=== PATIENT | female | born 1945 | race Caucasian/White ===

== ENCOUNTER 2019-08-29 21:50 | Inpatient (IN) | payer MEDICARE, BC ==
[2019-08-29] MEDS ORDERED: Pantoprazole 80 MG in Sodium Chloride 0.9% 100 ML IVP SCH (22:15)
[2019-08-29] MEDS ORDERED: Pantoprazole 40 MG VIAL ONE (22:24)
[2019-08-29] MEDS ORDERED: Benzocaine 20% Spray 60 ML CAN ONE (22:25)
[2019-08-29] MEDS ORDERED: Oxymetazoline HCl 0.05% (30 ML BOT) ONE (22:25)
[2019-08-29] MEDS ORDERED: Lidocaine Viscous Sol 2% 15 ml UD Cup ONE (22:27)
[2019-08-29 22:33] LABS: Bacteria/HPF None Seen HPF (None Seen); Bilirubin Negative (Negative); Blood, Urine Trace (Negative); Clarity Clear (Clear); Glucose, Urine (Dipstick) Normal (Negative); Leukocyte Negative Leu/uL (Negative); Nitrite Negative (Negative); Protein, Urine (Dipstick) Negative (Neg-Trace); RBC/HPF 0-3 HPF (0-3); Squamous Epithelial None Seen HPF (0-3); Urobilinogen Normal mg/dL (Less than 2); WBC/HPF 0-3 HPF (0-3)
--- NOTE | 2019-08-29 22:35 | RAD ---
EXAM: Chest one view: HISTORY: Nausea and vomiting COMPARISON: 06/30/2012 FINDINGS: Probable small hiatal hernia. Heart size: Within normal limits. Lungs: Clear of acute process. No evidence for pneumonia, pleural effusion, acute edema, or pneumothorax, or other significant acute process. IMPRESSION: No significant acute intrathoracic disease.
[2019-08-29 22:55] LABS: #Basophils 0.1 thou/uL (0.0-0.2); #Eosinphils 0.1 thou/uL (0.0-0.7); #Lymphocytes 1.6 thou/uL (1.20-3.40); #Monocytes 0.7 thou/uL (0.11-0.59); #Neutrophils 12.4 thou/uL (1.40-6.50); %Basophils 0.8 % (0.0-1.0); %Eosinophils 0.8 % (0.0-10.0); %Lymphocytes 10.5 % (21.0-51.0); %Monocytes 4.5 % (0.0-10.0); %Neutrophils 83.4 % (42.0-75.0); Hemoglobin 11.9 g/dL (12.0-16.0); Mean Corpuscular Hemoglobin 29.9 pg (27.0-31.0); Mean Corpuscular Volume 93.6 fL (78.0-98.0); Mean Platelet Volume 8.3 fL (7.4-10.4); Platelet Count 211 thou/uL (130-400); Red Blood Cell (RBC) Count 3.98 mill/uL (4.20-5.40); White Blood Cell (WBC) Count 14.9 thou/uL (4.8-10.8)
[2019-08-29 23:04] LABS: INR-International Normal Ratio 1.1; PTT 25.4 SEC (22.9-36.1); Prothrombin Time 14.3 SEC (12.0-14.7)
[2019-08-29 23:16] LABS: ALT (SGPT) 11 U/L (8-55); AST (SGOT) 19 U/L (5-34); Albumin 3.7 g/dL (3.4-4.8); Alkaline Phosphatase 59 U/L (40-110); Anion Gap 16 mmol/L (10-20); BUN (Urea Nitrogen) 29 mg/dL (9.8-20.1); Bilirubin, Total 0.4 mg/dL (0.2-1.2); CK (CPK) 73 U/L (29-168); Calc. Creatinine Clearance 0 mL/min (70-130); Calcium 7.9 mg/dL (7.8-10.44); Carbon Dioxide 16 mmol/L (23-31); Chloride 110 mmol/L (98-107); Estimated GFR-MDRD 67; Globulin 2.8 g/dL (2.4-3.5); Glucose 120 mg/dL (83-110); Lipase 17 U/L (8-78); Protein, Total 6.5 g/dL (6.0-8.3); Sodium 137 mmol/L (136-145)
--- NOTE | 2019-08-29 23:43 | RAD ---
EXAM: Chest one view: HISTORY: Nauseous and vomiting COMPARISON: 08/29/2019 FINDINGS: NG tube is in place extending in the stomach. Heart size: Within normal limits. Lungs: Clear of acute process. No evidence for pneumonia, pleural effusion, acute edema, or pneumothorax, or other significant acute process. IMPRESSION: No significant acute intrathoracic disease.
[2019-08-30] MEDS ORDERED: Ondansetron PF 4 MG/2 ML Vial IVP PRN (00:44)
[2019-08-30] MEDS ORDERED: Ondansetron ODT 4 MG TAB SL PRN (00:44)
[2019-08-30] MEDS ORDERED: D5 1/2 NS w/20 mEq KCL 1,000 ML IV SCH (00:45)
[2019-08-30 01:55] VITALS: BMI 27.3
--- NOTE | 2019-08-30 02:19 | PDOC.EVN ---
Event Note - Event Note Event Note: [id number] HP
[2019-08-30] MEDS: Sodium Chloride 0.9% 1,000 ML IV SCH ×2 (02:31→15:00)
[2019-08-30 05:09] LABS: #Monocytes 0.2 thou/uL (0.11-0.59); #Neutrophils 6.5 thou/uL (1.40-6.50); %Basophils 0.6 % (0.0-1.0); %Eosinophils 0.2 % (0.0-10.0); %Lymphocytes 12.4 % (21.0-51.0); %Monocytes 2.9 % (0.0-10.0); %Neutrophils 83.9 % (42.0-75.0); Hemoglobin 10.2 g/dL (12.0-16.0); Mean Corpuscular HGB CONC 34.3 g/dL (32.0-36.0); Mean Corpuscular Hemoglobin 31.5 pg (27.0-31.0); Mean Corpuscular Volume 91.8 fL (78.0-98.0); Mean Platelet Volume 7.7 fL (7.4-10.4); Platelet Count 187 thou/uL (130-400); RBC Distribution Width 11.7 % (11.5-14.5); Red Blood Cell (RBC) Count 3.24 mill/uL (4.20-5.40); White Blood Cell (WBC) Count 7.8 thou/uL (4.8-10.8)
[2019-08-30] MEDS ORDERED: FLU VACC TS2019-20(65YR UP)/PF 180 MCG/0.5 ML SYRINGE IM ONE (09:00)
[2019-08-30] MEDS ORDERED: Promethazine HCl 25 MG/ML VIAL SLOW IVP PRN (12:57)
[2019-08-30] MEDS ORDERED: Promethazine HCl 25 MG/ML VIAL IM PRN (12:57)
[2019-08-30] MEDS ORDERED: Ondansetron HCl/PF 4 MG/2 ML Vial IVP PRN (12:57)
--- NOTE | 2019-08-30 13:00 | CON ---
DATE OF CONSULTATION: 08/30/2019 REASON FOR CONSULT: Hematemesis, coffee-ground material. HISTORY OF PRESENT ILLNESS: Ms. Bailey is here with intermittent problems with burning stomach or hunger feeling in her stomach, but yesterday she had episode of vomiting couple times with coffee-grounds emesis the very first time it happened and second time. Then, she turned around and had a bowel movement where she had melena. She has never had this before. She has been taking the full dose aspirin daily. She denies any NSAID use regularly, although occasionally she uses some Aleve [id number]. She came to the emergency room and had a slight drop in hemoglobin from baseline. She was started on a Protonix drip and admitted. She had an NG tube for a while. It has been discontinued. She has had no further hematemesis or melena here. She has had no bleeding in the past or history of ulcers. PAST MEDICAL HISTORY: Some rhinitis and allergies. PAST SURGICAL HISTORY: None. SOCIAL HISTORY: She does not drink, smoke, or use drugs. FAMILY HISTORY: Negative for colorectal cancer, liver disease, or colon cancer. ALLERGIES: NONE. MEDICATIONS: At home, aspirin 325 mg. Medications here, Protonix drip. REVIEW OF SYSTEMS: Negative for dysphagia, odynophagia, weight loss, hematochezia, abdominal pain, or change in appetite. She has not had a previous screening colonoscopy. She is negative for shortness of breath, chest pain, dyspnea on exertion in the past. PHYSICAL EXAMINATION: VITAL SIGNS: Temperature is 98.3, pulse 72, blood pressure 122/68. LUNGS: Clear. HEART: Regular rate and rhythm without clicks or murmurs. ABDOMEN: Soft and nontender. There is no rebound. There is no guarding. EXTREMITIES: No clubbing, cyanosis, or edema. LABORATORY DATA: BUN is 29, creatinine is 0.84, it is last night at 2200 hours. Her baseline several years ago was 16 and 0.8. White count was 14.9 last night with a hemoglobin 11.9, this morning hemoglobin 10.2, MCV 27. Baseline hemoglobin back in 2014 was 14. ASSESSMENT: Hematemesis, melena, likely related to upper gastrointestinal bleed. Most likely this would be an ulcer related to daily aspirin use. She does use some other NSAIDs but sparingly. RECOMMENDATIONS: Continue PPI. The patient is n.p.o. We will proceed with EGD today. Job ID: [id number]
--- NOTE | 2019-08-30 14:09 | OP ---
DATE OF PROCEDURE: 08/30/2019 PREPROCEDURE DIAGNOSES: Hematemesis, drop in hemoglobin, suspected upper GI bleed. POSTPROCEDURE DIAGNOSES: 1. Gastric ulcer in the antrum, 1 cm in diameter, anterior wall with a red spot, but no visible vessel or clot to indicate high risk for rebleeding. 2. Otherwise, normal EGD. PROCEDURES: EGD with biopsy of gastric antral ulcer and biopsy of gastric antral mucosa for H pylori. RECOMMENDATIONS: 1. Protonix IV q.12 hours. 2. Full liquid diet, advance as tolerated. No bleeding. Can change to p.o. PPI and discharge home tomorrow. 3. NSAID avoidance. 4. Follow up in my office in 2 to 3 weeks to schedule outpatient followup endoscopy in 6 weeks to document healing of ulcer. ANESTHESIA: TIVA. DESCRIPTION OF PROCEDURE: After the patient was informed of the risks, benefits, and possible complications of endoscopy including the perforation, reaction to medication, aspiration, informed consent was obtained. The patient was brought to endoscopy suite, where she was sedated in gradual fashion. Once she was comfortable, a bite block was placed inside the orifice. The endoscope was advanced through the esophagus, stomach, and second and third portions of the duodenum and slowly removed. The esophagus was normal except for small Schatzki ring at the distal esophagus. There was no inflammatory changes. There was no evidence of Elvira-Bell tear. The scope was advanced into the stomach, which was without signs of old blood. In the antrum, there was some submucosal hemorrhage over a prominent fold, anterior wall of the antrum, and getting down to this area, there was about a 1 cm white based ulcer with one red spot in the base. There was no visible vessel, active bleeding, or stigmata of high risk for rebleeding. Biopsy was taken from the margin of the ulcer and submitted to Pathology. Biopsy was taken from the gastric antrum and submitted to Pathology, rule out H. pylori. The duodenal bulb was entered and found to be normal including the second and third portions of the duodenum. The scope was brought back into the stomach. There was no bleeding identified, and then, the scope was retroflexed with normal distention in the stomach and no evidence of lesions in the proximal stomach or cardia. The scope was returned to forward position and then removed. The patient tolerated the procedure well. There were no complications. Job ID: [id number]
--- NOTE | 2019-08-30 17:54 | PDOC.HOSPP ---
- Subjective Encounter Date: 08/30/19 Encounter Time: 16:00 Subjective: The patient is doing better. She reports that she was vomiting black blood and that she saw black in her stool today. She had no abdominal pain or diarrhea, no fevers or chills. She has been taking aspirin and NSAIDs for arthritis in her legs. She denies any heart problems. She does take symbicort occasionally for cough, was told she may have COPD. - Objective Vital Signs & Weight: Vital Signs (12 hours) Temp Pulse Resp BP Pulse Ox 08/30/19 15:59 72 16 138/70 95 08/30/19 13:15 97.1 F L 79 19 156/81 H 99 08/30/19 07:49 98.3 F 72 16 122/68 100 Weight Weight 159 lb I&O: 08/29/19 08/30/19 08/31/19 06:59 06:59 06:59 Intake Total 520 Balance 520 Result Diagrams: 08/30/19 14:38 08/29/19 22:46 Hospitalist ROS - Review of Systems Constitutional: denies: sweats ENT: denies: nose pain Gastrointestinal: denies: abdominal pain Musculoskeletal: denies: shoulder pain - Medication Medications: Active Medications Generic Name Dose Route Start Last Admin Trade Name Freq PRN Reason Stop Dose Admin Sodium Chloride 1,000 mls @ 100 mls/hr 08/30/19 02:00 08/30/19 15:00 Normal Saline 0.9% IV 1,000 mls .Q10H MARIO Administration - Exam Eye: PERRL, anicteric sclera ENT: normocephalic atraumatic, no oropharyngeal lesions Neck: no JVD Heart: RRR, no murmur, no gallops Respiratory: CTAB, no wheezes, no rales Gastrointestinal: soft, non-tender, non-distended Extremities: no cyanosis, no clubbing, no edema Skin: normal turgor, no lesions Neurological: cranial nerve grossly intact, normal sensation to touch, no new deficit Musculoskeletal: normal tone, normal strength Psychiatric: normal behavior, A&O x 3, oriented to person Hosp A/P - Plan Chest x ray : no acute disease Chest X ray: no acute disease THis is a 73 year old female who presented with coffee ground emesis and black tarry stool. Had history of NSAID and aspirin use for arthritis, s/p EGD showing ulcer and Schatzki's ring. Upper GI bleed - secondary to gastric ulcer - s/p upper endoscopy showing ulcer 1cm in the antral area. Biopsies taken, H pylori pending - continue IV protonix q12 hour - patient tolerated solid diet this evening prior to my arrival - d/c tomorrow on home protonix, f/u with Dr. Cormier in 2-3 weeks for post endoscopy in 6 weeks Schatzi's ring - continue protonix COPD - budesonide prn Disposition: d/c tomorrow am Code status: full code DVT prophylaxis: contraindicated GI Prophylaxis: PPI
[2019-08-30] MEDS: Pantoprazole 40 MG VIAL IVP SCH (20:10)
[2019-08-30 22:18] LABS: Hemoglobin 9.4 g/dL (12.0-16.0)
[2019-08-31] MEDS: Sodium Chloride 0.9% 1,000 ML IV SCH ×2 (00:35→09:39)
[2019-08-31 06:22] LABS: Hemoglobin 9.3 g/dL (12.0-16.0); Mean Corpuscular Hemoglobin 31.1 pg (27.0-31.0); Mean Corpuscular Volume 91.6 fL (78.0-98.0); Mean Platelet Volume 7.3 fL (7.4-10.4); Platelet Count 169 thou/uL (130-400); RBC Distribution Width 11.7 % (11.5-14.5); Red Blood Cell (RBC) Count 2.99 mill/uL (4.20-5.40); White Blood Cell (WBC) Count 6.2 thou/uL (4.8-10.8)
[2019-08-31 06:52] LABS: Anion Gap 9 mmol/L (10-20); BUN (Urea Nitrogen) 12 mg/dL (9.8-20.1); Calc. Creatinine Clearance 83 mL/min (70-130); Calcium 7.7 mg/dL (7.8-10.44); Carbon Dioxide 23 mmol/L (23-31); Chloride 113 mmol/L (98-107); Estimated GFR-MDRD 81; Glucose 88 mg/dL (83-110); Potassium 3.5 mmol/L (3.5-5.1); Sodium 141 mmol/L (136-145)
[2019-08-31] MEDS ORDERED: Pantoprazole 40 MG GRANULES PACKET PO SCH (09:00)
[2019-08-31] MEDS: Pantoprazole 40 MG VIAL IVP SCH (09:40)
--- NOTE | 2019-08-31 14:18 | PRG ---
DATE OF SERVICE: 08/31/2019 SUBJECTIVE: Ms. Bailey is doing well. She has had no bleeding. She is set to go home today. She denies any melena, hematemesis, or nausea. She does have some right neck pain. She has been afebrile. OBJECTIVE: VITAL SIGNS: Temperature max 98.7, pulse 79, blood pressure 125/71. LUNGS: Clear. ABDOMEN: Soft, nontender. LABORATORY DATA: Hemoglobin is stable at 9.3, platelet count is 169, white count is 6.2. ASSESSMENT: 1. Gastrointestinal bleed secondary to gastric ulcer, low risk for rebleeding. Biopsies obtained and pending. 2. Mild sore throat. She has a little bit tenderness in the right neck with no fluctuance or crepitus. This is probably related to her endoscopy. RECOMMENDATIONS: PPI b.i.d. for 2 weeks, then once daily and Protonix, which she is on is fine. I have told her if that is too expensive for her, she can get [id number] Prilosec or Nexium and take 4 of those because they are 20 mg for 14 days and then 2 a day for full 8 weeks. I have recommended she have a repeat endoscopy in 6 to 8 weeks to confirm healing. Job ID: [id number]
[2019-08-31 15:27] VITALS: BP 132/73; TEMP 98.5
--- NOTE | 2019-09-01 07:55 | HP ---
CHIEF COMPLAINT: Vomiting blood. HISTORY OF PRESENT ILLNESS: Ms. Bailey is a 73-year-old female with past medical history of COPD and arthritis, who takes 325 mg of aspirin daily and occasionally takes ibuprofen, presented to the emergency room with vomiting blood that started earlier today. The patient has some abdominal discomfort, but denies fevers, chills, or chest pain. Also, she notes that the stool is black. On workup in the emergency room, the patient was found to have a hemoglobin of 11.9. INR is 1.1. The patient is started on IV proton pump inhibitor, and GI has been consulted. PAST MEDICAL HISTORY: 1. Arthritis. 2. COPD. PAST SURGICAL HISTORY: No reported past surgical history. SOCIAL HISTORY: Denies alcohol use. No smoking history. FAMILY HISTORY: Reviewed and noncontributory. HOME MEDICATIONS: Please see home medication reconciliation form for updated medications. ALLERGIES: ALLERGIC TO PREDNISONE. REVIEW OF SYSTEMS: Review of 14 systems negative except what is mentioned in the history of present illness. PHYSICAL EXAMINATION: GENERAL: The patient is awake, alert, not in acute distress. VITAL SIGNS: Blood pressure 136/61, pulse is 72, respiratory rate 16, and temperature is 97.6. HEAD AND NECK: Normocephalic, atraumatic. Neck is supple. No JVD. CHEST: Fair bilateral air entry. HEART: S1, S2. Regular. ABDOMEN: Soft with mild epigastric tenderness. Bowel sounds present. NEUROLOGIC: Awake, alert, oriented x3. PSYCH: Normal mood. EXTREMITIES: No clubbing or cyanosis. LABORATORY DATA: As mentioned above in the history of present illness. ASSESSMENT: 1. Acute gastrointestinal bleeding, upper. 2. Abdominal pain. 3. Osteoarthritis, on aspirin/NSAIDs. 4. Chronic obstructive pulmonary disease. PLAN: 1. Admit. 2. We will keep the patient n.p.o. 3. IV fluids. 4. Monitor hemoglobin and hematocrit. 5. Continue with IV proton pump inhibitor. 6. GI is being consulted for evaluation and further management. 7. aspirin and NSAIDs. 8. DVT prophylaxis. Early ambulation. 9. Expected length of stay, two midnights or more. Job ID: [id number]
== END 2019-08-31 17:22 | disposition home or self-care (01) | DRG 379 ==
LOC: ERS 21:50 → SURG B 23:12
PROVIDERS: ADMIT Internal Medicine; ATTEND Internal Medicine
PROC: 0DB78ZX Excision of Stomach, Pylorus, Via Natural or Artificial Opening Endoscopic, Diagnostic (ICD-10-PCS; principal; 2019-08-30)
PROC: 0DB68ZX Excision of Stomach, Via Natural or Artificial Opening Endoscopic, Diagnostic (ICD-10-PCS; 2019-08-30)
DX: K25.4 Chronic or unspecified gastric ulcer with hemorrhage (principal); K22.2 Esophageal obstruction; M19.91 Primary osteoarthritis, unspecified site; J44.9 Chronic obstructive pulmonary disease, unspecified; J02.9 Acute pharyngitis, unspecified; Z79.82 Long term (current) use of aspirin; Z79.899 Other long term (current) drug therapy; Z88.8 Allergy status to other drugs, medicaments and biological substances
CPT/HCPCS: 36415; 71045; 80048; 80053; 81003; 81015; 82550; 83690; 83880; 84484; 85025; 85027; 85610; 85730; 86850; 86900; 86901; 88305; 88312; 93005; 96361; 96365; 96376; C9113; J2405; J3490